=== PATIENT | female | born 1945 | race Caucasian/White ===

== ENCOUNTER 2020-10-09 10:01 | Outpatient (CLI) | payer MEDICARE, OTHER, SELFPAY ==
--- NOTE | 2020-10-09 10:12 | XR_ITS ---
WS: [id number] Exam: XR chest 2V* [id number] Date/Time of Exam: 10/09/2020 10:14 AM Reason For Exam: DM/COPD/SEVERE HTN/WELL ADULT EXAM Comparison 09/30/2015. A new 2 x 3 cm nodular density is seen in the medial aspect of the right lower lobe with possible flu id level. There is also a questionable ill-defined 1 cm nodular density just above the right costophr enic angle that could be a nipple shadow. The lungs are otherwise clear and markedly hyperinflated. N ormal cardiomediastinal structures and regional bony elements. Levoscoliosis of the lower T-spine and upper L-spine. Recommendations: Contrast CT scanning of the chest recommended for further workup. XR/XR chest 2V* [id number] IMPRESSION: 1. A new 2 x 3 cm nodular density with possible fluid level identified in the m edial aspect of the right lower lobe. 2. Questionable 1 cm nodular density seen just above the right costophrenic ang le. This could be a lung nodule or nipple shadow. 3. Marked pulmonary hyperinflation suggesting COPD.
== END 2020-10-09 10:02 | disposition home or self-care (01) ==
PROVIDERS: Visit Provider Family Medicine
DX: E11.9 Type 2 diabetes mellitus without complications (principal); J44.9 Chronic obstructive pulmonary disease, unspecified; I10 Essential (primary) hypertension; Z00.00 Encounter for general adult medical examination without abnormal findings
CPT/HCPCS: 71046

== ENCOUNTER 2020-12-13 09:42 | Outpatient (CLI) | payer MEDICARE, OTHER, SELFPAY ==
--- NOTE | 2020-12-13 | CT_ITS ---
WS: [id number] CT CHEST TECHNIQUE: Contrast enhanced CT of the chest with coronal and sagittal reformatted images. CLINICAL INFORMATION: LUNG NODULE COMPARISON: None. DLP: 533.[address] scans at [facility] use at least one of these dose optimization techniques: automat ed exposure control; mA and/or kV adjustment per patient size (includes targeted exams where dose is matched to clinical indication); or iterative reconstruction. FINDINGS: Moderate to advanced chronic emphysematous changes. No acute pulmonary infiltrates. No focal consolid ation or pleural fluid. Subsegmental atelectasis right lower lobe. A few scattered areas of fibrosis. No mediastinal or hilar lymphadenopathy. Normal caliber thoracic aorta. No axillary lymphadenopathy. Normal thoracic spine. CT/CT chest w con* [id number] IMPRESSION: 1. Moderate to advanced chronic emphysematous changes. No acute pulmonary infi ltrates. 2. Subsegmental atelectasis right lower lobe. A few scattered areas of fibrosi s. 3. No mediastinal or hilar lymphadenopathy. 4. Normal caliber thoracic aorta.
[2020-12-13] MEDS: iodixanol 320 mg/mL 100mL Btl IV (10:16)
== END 2020-12-13 09:43 | disposition home or self-care (01) ==
PROVIDERS: Visit Provider Family Medicine
DX: R91.1 Solitary pulmonary nodule (principal); J44.9 Chronic obstructive pulmonary disease, unspecified; J98.11 Atelectasis
CPT/HCPCS: 71260; Q9967

== ENCOUNTER → 2022-09-22 09:35 | Outpatient (BNVA) | payer MEDICARE, OTHER, SELFPAY | PROVIDERS: PCP Family Medicine; Visit Provider Family Medicine | DX: J44.9 Chronic obstructive pulmonary disease, unspecified (principal); I49.9 Cardiac arrhythmia, unspecified; G47.00 Insomnia, unspecified; I10 Essential (primary) hypertension | CPT/HCPCS: 80053; 80061; 84443; 85025 ==

== ENCOUNTER → 2022-09-23 10:19 | Outpatient (BNVA) | payer MEDICARE, OTHER, SELFPAY | PROVIDERS: PCP Family Medicine; Visit Provider Internal Medicine Cardiovascular Disease | DX: I49.9 Cardiac arrhythmia, unspecified (principal); J44.1 Chronic obstructive pulmonary disease with (acute) exacerbation; I10 Essential (primary) hypertension; J44.9 Chronic obstructive pulmonary disease, unspecified; I49.1 Atrial premature depolarization; I49.3 Ventricular premature depolarization | CPT/HCPCS: 93005; 99203 ==

== ENCOUNTER 2022-11-01 19:21 | Emergency (ER) | payer MEDICARE, OTHER, SELFPAY ==
[2022-11-01 19:25] VITALS: BP 187/112; PULSE 120; RESP 26; TEMP 36.5; O2SAT 76; BMI 16.9
--- NOTE | 2022-11-01 19:57 | XRR_ITS ---
PROCEDURE INFORMATION: Exam: XR Chest Exam date and time: 11/01/2022 8:17 PM Age: 77 years old Clinical indication: Dyspnea TECHNIQUE: Imaging protocol: Radiologic exam of the chest. Views: 2 views. COMPARISON: CT chest w con* [id number] 12/13/2020 10:08 AM FINDINGS: Lungs: Bibasilar atelectasis versus minimal infiltrate. Emphysematous changes. Pleural spaces: Trace bilateral pleural effusions. Heart/Mediastinum: Unremarkable. No cardiomegaly. Bones/joints: Unremarkable. XR/XR chest 2V* [id number] IMPRESSION: 1. Trace bilateral pleural effusions. 2. Bibasilar atelectasis versus minimal infiltrate. 3. Emphysematous changes.
--- NOTE | 2022-11-01 19:57 | ED_ITS ---
HPI - SOB/Dyspnea General: Chief Complaint: Shortness of Breath/Dyspnea Stated Complaint: sob Time Seen by Provider: 11/01/22 19:47 History of Present Illness: HPI Narrative: Patient arrives to the ER with labored breathing, she is tripoding and very short of breath. Patient says she is short of breath all the time. However in the waiting room she was 76% on room air. She was placed on 2 L/min per nasal cannula and jumped up to 96%. Patient has COPD. Patient does not wear oxygen at home. MD elicited complaint: shortness of breath Pertinent past history: COPD Onset (ago): unknown Timing: constant Severity: moderate Exacerbating factors: exertion Relieving factors: oxygen Known history of: COPD Associated symptoms: Reports no associated symptoms; Deny abdominal pain, chest pain, fever(s), nausea, palpitations or vomiting Treatment prior to arrival: none Related Data: Home oxygen amount: none Review of Systems General: Reports: 10 or more systems reviewed and unremarkable except in HPI and below Const: Denies: fever(s) or chills Eyes: Denies: change in vision ENMT: Denies: throat pain or odynophagia Card: Denies: chest pain or palpitations Resp: Reports: dyspnea; Denies: productive cough or non-productive cough GI: Denies: abdominal pain, nausea, vomiting or diarrhea : Denies: flank pain, difficulty voiding or dysuria Musc: Denies: neck pain or back pain [facility] ED PFSH: Medical History COPD (chronic obstructive pulmonary disease) Essential hypertension History of venomous snake bite 2004 Hx of solitary pulmonary nodule Premature atrial contractions PVC (premature ventricular contraction) Surgical History Hx of appendectomy Hx of tubal ligation Social History Smoking and tobacco status: former smoker Quit status (tobacco): has quit using tobacco Year quit tobacco: 2001 Alcohol intake: never Physical Exam Const: COMMON NORMALS: average body habitus, patient oriented x3, no limitations, healthy appearing, alert and well nourished HENMT: COMMON NORMALS: normocephalic, atraumatic, hearing grossly normal bilaterally, external ears normal, Normal external nose present and moist oral m ucous membranes HEAD & SCALP: normocephalic and atraumatic NOSE: Normal external nose present EXTERNAL EAR: Yes external ears normal Eye: COMMON NORMALS: Equal, round and reactive pupils present, EOMs intact bilaterally, conjunctivae normal and no scleral icterus CONJUNCTIVA: Yes conjunctivae normal PUPIL: Yes Equal, round and reactive pupils present Neck/C-Spine: COMMON NORMALS: full ROM, no lymphadenopathy, supple, no meningeal signs, no JVD and Thyroid normal THYROID: Thyroid normal Chest: COMMONS NORMALS: normal inspection of the chest and normal palpation of entire chest wall Resp: COMMON NORMALS: No retractions and No use of accessory muscles AUSCULTATION: diminished lung sounds bilateral and diffuse Cardio: COMMON NORMALS: no JVD, regular rate, regular rhythm, S1 normal heart sound present and S2 normal heart sound present RATE: regular rate RHYTHM: regular rhythm HEART SOUNDS: S1 normal heart sound present and S2 normal heart sound present GI: COMMON NORMALS: Normal to inspection, nondistended, normoactive bowel sounds present, Soft to palpation, non-tender, No hepatosplenomegaly present and no masses PALPATION: Yes Soft to palpation and Yes No hepatosplenomegaly present Neuro: COMMON NORMALS: patient oriented x3 SENSORIUM/ORIENTATION: Yes alert MENINGEAL SIGNS: Yes no meningeal signs Course Vital Signs: Vital signs: Vital Signs Temperature 97.7 F 11/01/22 19:25 Pulse Rate 79 11/01/22 22:07 Respiratory Rate 16 11/01/22 22:07 Blood Pressure 187/112 11/01/22 19:25 Pulse Oximetry 96 11/01/22 22:07 Oxygen Delivery Me thod Nasal Cannula 11/01/22 22:07 MDM - SOB/Dyspnea Medical Decision Making Patient presents to the ER with complaints of shortness of breath and was 76% on room air. Patient was put on 2 L per nasal cannula and O2 saturation increased to 96%. Patient's pulse when she arrived was 120 bpm and I decreased down to 79 bpm. Patient did have a run of a A-fib with RVR she is given 10 mg of Cardizem IV that converted her to her normal sinus rhythm with a pulse in the 80s. X-ray was obtained which showed trace bilateral pleural effusions bibasilar atelectasi s versus minimal infiltrate. Lab work was obtained which showed a normal white count, and metabolic panel that was benign. ABG was obtained on 2 L of oxygen which showed a pH of 7.3 PCO2 of 53.5 and a PO2 of 83.9. Patient has felt good during her stay here in the ER she has been in no acute distress she says she is slowly gotten to this point. Patient has no oxygen at home but we will discharg e her on oxygen at 2 L per nasal cannula, tapering dose of prednisone and azithromycin. Patient will follow-up with her family doctor in the next 1 week. Differential Diagnosis Likely acute exacerbation of chronic obstructive airways disease; Unlikely congestive heart failure or community acquired pneumonia Medical Records I reviewed the patient's medical records. Lab Data I reviewed the patient's lab results. 11/01/22 20:14 11/01/22 20:14 Labs/Radiology: Radiology Impressions Chest X-Ray 11/01/22 19:57 IMPRESSION: 1. Trace bilateral pleural effusions. 2. Bibasilar atelectasis versus minimal infiltrate. 3. Emphysematous changes. Laboratory Results WBC 5.5 10^3/uL (4.0-10.0) 11/01/22 20:14 RBC 3.78 10^6/uL (4.1-5.3) L 11/01/22 20:14 Hgb 12.9 g/dL (11.5-15.3) 11/01/22 20:14 Hct 40.2 % (37.0-47.0) 11/01/22 20:14 MCV 106.3 fl (81-99) H 11/01/22 20:14 MCH 34.1 pg (28.0-34.0) H 11/01/22 20:14 MCHC 32.1 g/dL (30.0-36.0) 11/01/22 20:14 RDW 12.6 % (12.1-15.1) 11/01/22 20:14 Plt Count 169 10^3/cmm (130-400) 11/01/22 20:14 MPV 9.8 fL (7.4-10.4) 11/01/22 20:14 Neut % (Auto) 67.2 % 11/01/22 20:14 Lymph % (Auto) 19.6 % 11/01/22 20:14 [place] % (Auto) 9.7 % 11/01/22 20:14 Eos % (Auto) 2.2 % 11/01/22 20:14 Baso % (Auto) 0.9 % 11/01/22 20:14 Neut # (Auto) 3.68 10^3/uL (1.8-7.7) 11/01/22 20:14 Lymph # (Auto) 1.1 10^3/uL (0.8-4.8) 11/01/22 20:14 [place] # (Auto) 0.5 10^3/uL (0.2-0.9) 11/01/22 20:14 Eos # (Auto) 0.1 10^3/uL (0.0-0.8) 11/01/22 20:14 Baso # (Auto) 0.1 10^3/uL (0.0-0.1) 11/01/22 20:14 Nucleated RBC % (auto) 0 % 11/01/22 20:14 Nucleated RBCs # 0.0 /100WBC 11/01/22 20:14 Specimen Type Arterial 11/01/22 20:20 Sample Site Brachial, left 11/01/22 20:20 ABG pH 7.36 (7.35-7.45) 11/01/22 20:20 ABG pCO2 53.5 mmHg (35-45) H 11/01/22 20:20 ABG pO2 83.9 mmHg (80.0-100.0) 11/01/22 20:20 ABG HCO3 30.2 mmol/L (22-26) H 11/01/22 20:20 ABG Base Excess 3.6 mmol/L (-2.0-2.0) H 11/01/22 20:20 Jhonny Test N/a 11/01/22 20:20 Hematocrit 40.7 % (37-47) 11/01/22 20:20 Hgb O2 Saturation 93.6 % (95-100) L 11/01/22 20:20 Carboxyhemoglobin 2.4 %THgb (0.4-20.1) 11/01/22 20:20 Methemoglobin 0.7 % (0.4-1.5) 11/01/22 20:20 Total Hemoglobin 13.3 g/dL (12-16) 11/01/22 20:20 O2 Delivery Device Nc 11/01/22 20:20 O2 Liters/Min 2.5 % 11/01/22 20:20 FiO2 30.0 % 11/01/22 20:20 Bank Note Designer ID Benji 11/01/22 20:20 Sodium 135 mmol/L (136-145) L 11/01/22 20:14 Potassium 3.5 mmol/L (3.5-5.1) 11/01/22 20:14 Chloride 99 mmol/L (98-107) 11/01/22 20:14 Carbon Dioxide 28 mmol/L (22-29) 11/01/22 20:14 Anion Gap 11.5 (5-19) 11/01/22 20:14 BUN 18 mg/dL (8-23) 11/01/22 20:14 Creatinine 0.5 mg/dL (0.5-0.9) 11/01/22 20:14 GFR Calculation Not Reportable 11/01/22 20:14 Glucose 150 mg/dL (65-115) H 11/01/22 20:14 Calculated Osmolality 285 mOsm/kg (285-295) 11/01/22 20:14 Calcium 8.5 mg/dL (8.5-10.5) 11/01/22 20:14 Magnesium 2.0 mg/dL (1.7-2.3) 11/01/22 20:14 Total Bilirubin 0.8 mg/dL (0.15-1.2) 11/01/22 20:14 AST 18 U/L (0-32) 11/01/22 20:14 ALT 18 U/L (0-33) 11/01/22 20:14 Alkaline Phosphatase 99 U/L (35-105) 11/01/22 20:14 Troponin T Gen 5 ng/L 11 ng/L (0-10) H 11/01/22 20:14 NT-Pro-B Natriuret Pep 2283 pg/mL (0-450) H 11/01/22 20:14 Total Protein 7.0 g/dL (6.6-8.7) 11/01/22 20:14 Albumin 4.6 g/dL (3.5-5.2) 11/01/22 20:14 Globulin 2.4 g/dL (1.3-4.6) 11/01/22 20:14 Nasal Influ A H1 2009 PCR Not detected (NOT DETECT) 11/01/22 20:05 Adenovirus (PCR) Not detected (NOT DETECT) 11/01/22 20:05 C. pneumoniae DNA (PCR) Not detected (NOT DETECT) 11/01/22 20:05 Coronavirus 229E (PCR) Not detected (NOT DETECT) 11/01/22 20:05 Human Metapneumovir PCR Not detected (NOT DETECT) 11/01/22 20:05 Influenza A (H1) PCR Not detected (NOT DETECT) 11/01/22 20:05 Influenza A (H3) PCR Not detected (NOT DETECT) 11/01/22 20:05 Influenza Type A (PCR) Not detected (NOT DETECT) 11/01/22 20:05 Influenza Type B (PCR) Not detected (NOT DETECT) 11/01/22 20:05 M. pneumoniae (PCR) Not detected (NOT DETECT) 11/01/22 20:05 Parainfluenza 1 (PCR) Not detected (NOT DETECT) 11/01/22 20:05 Parainfluenza 2 (PCR) Not detected (NOT DETECT) 11/01/22 20:05 Parainfluenza 3 (PCR) Not detected (NOT DETECT) 11/01/22 20:05 Parainfluenza 4 (PCR) Not detected (NOT DETECT) 11/01/22 20:05 RSV Type A (PCR) Not detected (NOT DETECT) 11/01/22 20:05 RSV Type B (PCR) Not detected (NOT DETECT) 11/01/22 20:05 Entero/Rhino (PCR) Not detected (NOT DETECT) 11/01/22 20:05 SARS-CoV-2 (PCR) Not detected (NOT DETECT) 11/01/22 20:05 Discharge Plan Discharge Patient Disposition: Home Clinical Impression: COPD (chronic obstructive pulmonary disease) Condition: Stable Prescriptions: New prednisone 50 mg tablet 50 mg PO DAILY Qty: 5 0RF azithromycin 250 mg tablet See Rx Instructions .ROUTE .COMPLEX Qty: 6 0RF Rx Instructions: For 250 mg dose pack: take 500 mg today (day 1), then 250 mg for 4 days (days 2-5) No Action albuterol sulfate 90 mcg/actuation HFA aerosol inhaler 2 puff inhalation Q4H PRN (Reason: shortness of breath or wheezing) Qty: 8.5 11RF zolpidem 10 mg tablet 10 mg PO .qhs Qty: 30 5RF Rx Instructions: may use 1/2 to 1 tab per night fluticasone propionate [Flovent HFA] 110 mcg/actuation HFA aerosol inhaler 110 mcg inhalation BID Qty: 12 11RF ipratropium-albuterol 0.5 mg-3 mg(2.5 mg base)/3 mL solution for nebulization 3 ml inhalation QID Qty: 180 11RF Discharge Orders: Discharge ED (Routine); Ordered 11/01/22 Ordered By: Mulugeta Long Other Ambulatory Orders: DME: Oxygen (Order) Location: None Selected Ordered By: Wayne Lewis Referrals: Remi Cano, [Primary Care Provider] - 1 week Patient Instructions: COPD - Emphysema, Hypoxia (ED) Activity Restrictions/Additional Instructions: Please take your medicine as directed. Please wear oxygen at 2 L/min per nasal cannula at all times until seen by primary care. Coding Level of Care Code ED Laboratory Assistant for Gayla Guzman
--- NOTE | 2022-11-01 19:58 | ECG_ITS ---
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 Measurements Intervals [place] Rate: 109 P: 0 VA: 0 QRS: 75 QRSD: 82 T: 60 QT: 321 QTc: 434 Interpretive Statements ATRIAL FIBRILLATION WITH RAPID VENTRICULAR RESPONSE MODERATE ST DEPRESSION [0.05+ mV ST DEPRESSION] No previous ECG available for comparison Electronically Signed On 11-01-2022 21:26:22 CDT by Elmer Verma M.D. [email or web address] health river oaksLIBCASTmercy health defiance hospitalMade2Manage [email or web address]/store/[id number]
[2022-11-01 20:21] LABS: Basophils # 0.1 10^3/uL (0.0-0.1); Basophils % 0.9 %; Eosinophils # 0.1 10^3/uL (0.0-0.8); Eosinophils % 2.2 %; Hematocrit 40.2 % (37.0-47.0); Hemoglobin 12.9 g/dL (11.5-15.3); Lymphocytes # 1.1 10^3/uL (0.8-4.8); Lymphocytes % 19.6 %; Mean Corpuscular HGB Conc 32.1 g/dL (30.0-36.0); Mean Corpuscular Hemoglobin 34.1 pg (28.0-34.0); Mean Corpuscular Volume 106.3 fl (81-99); Mean Platelet Volume 9.8 fL (7.4-10.4); Monocytes # 0.5 10^3/uL (0.2-0.9); Monocytes % 9.7 %; Neutrophils # 3.68 10^3/uL (1.8-7.7); Neutrophils % 67.2 %; Nucleated Red Blood Cells % 0 %; Platelet Count 169 10^3/cmm (130-400); Red Blood Count 3.78 10^6/uL (4.1-5.3); Red Cell Distribution Width 12.6 % (12.1-15.1); White Blood Count 5.5 10^3/uL (4.0-10.0)
[2022-11-01 20:31] LABS: ABG PCO2 53.5 mmHg (35-45); ABG PH Result 7.36 (7.35-7.45); Arterial Blood Gas Hematocrit 40.7 % (37-47); Base Excess ABG 3.6 mmol/L (-2.0-2.0); Blood Gas LPM 2.5 %; Blood Gas Sample Site Brachial, left; Blood Gas Sample Type Arterial; Carboxyhemoglobin 2.4 %THgb (0.4-20.1); HCO3 ABG 30.2 mmol/L (22-26); HGB O2 Sat 93.6 % (95-100); Methemoglobin 0.7 % (0.4-1.5); Oxygen Device NC; PO2 ABG 83.9 mmHg (80.0-100.0); Total Hemoglobin 13.3 g/dL (12-16)
[2022-11-01 20:52] LABS: Alanine Aminotransferase 18 U/L (0-33); Albumin Level 4.6 g/dL (3.5-5.2); Alkaline Phosphatase 99 U/L (35-105); Anion Gap 11.5 (5-19); Aspartate Amino Transferase 18 U/L (0-32); Blood Urea Nitrogen 18 mg/dL (8-23); Calcium 8.5 mg/dL (8.5-10.5); Carbon Dioxide 28 mmol/L (22-29); Chloride 99 mmol/L (98-107); Globulin 2.4 g/dL (1.3-4.6); Glucose 150 mg/dL (65-115); NT Pro B Type Natriuretic Pept 2283 pg/mL (0-450); Osmolality Calculated 285 mOsm/kg (285-295); Potassium 3.5 mmol/L (3.5-5.1); Sodium 135 mmol/L (136-145); Total Bilirubin 0.8 mg/dL (0.15-1.2)
[2022-11-01] MEDS: dilTIAZem 5 mg/mL SDV 5 mL 10 MG IVP (21:07)
[2022-11-01 21:51] LABS: Troponin T (5th) Once 11 ng/L (0-10)
[2022-11-01 22:00] VITALS: PULSE 79
[2022-11-01 22:07] VITALS: PULSE 79; RESP 16; O2SAT 96
[2022-11-01 22:21] LABS: Adenovirus Not Detected (NOT DETECT); Chlamydia Pneumoniae Not Detected (NOT DETECT); Coronavirus 229E,HKU1,NL63,OC4 Not Detected (NOT DETECT); Human Metapneumovirus Not Detected (NOT DETECT); Human Rhinovirus/Enterovirus Not Detected (NOT DETECT); Influenza A Not Detected (NOT DETECT); Influenza A H1 Not Detected (NOT DETECT); Influenza A H1-2009 Not Detected (NOT DETECT); Influenza A H3 Not Detected (NOT DETECT); Influenza B Not Detected (NOT DETECT); Mycoplasma Pneumoniae Not Detected (NOT DETECT); Parainfluenza Virus Type 1 Not Detected (NOT DETECT); Parainfluenza Virus Type 2 Not Detected (NOT DETECT); Parainfluenza Virus Type 3 Not Detected (NOT DETECT); Parainfluenza Virus Type 4 Not Detected (NOT DETECT); Respiratory Syncytial Virus A Not Detected (NOT DETECT); Respiratory Syncytial Virus B Not Detected (NOT DETECT); SARS-COV-2 Not Detected (NOT DETECT)
[2022-11-01 23:13] VITALS: PULSE 81; RESP 16; O2SAT 97
[2022-11-01 23:22] VITALS: O2SAT 84; O2SAT 85
== END 2022-11-01 23:40 | disposition home or self-care (01) ==
PROVIDERS: Emergency Provider Emergency Medicine; PCP Family Medicine
DX: J44.9 Chronic obstructive pulmonary disease, unspecified (principal); Z87.891 Personal history of nicotine dependence
CPT/HCPCS: 36600; 71046; 80053; 82805; 83735; 83880; 84484; 85025; 87486; 87581; 87633; 93005; 96374; 99285; J3490

== ENCOUNTER 2022-11-20 09:38 | Outpatient (CLI) | payer MEDICARE, OTHER, SELFPAY ==
--- NOTE | 2022-11-20 09:47 | CT_ITS ---
WS: [id number] CT scan of the chest with IV contrast, additional two-dimensional coronal and sagittal reconstruction was performed. 11/20/2022 Clinical Data: I48.0 - Paroxysmal atrial fibrillation Comparison: CT chest, 12/13/2020 DLP: 168.[address] scans at [facility] use at least one of these dose optimization techniques: automated e xposure control; mA and/or kV adjustment per patient size (includes targeted exams where dose is matc hed to clinical indication); or iterative reconstruction. Findings: No nodules, masses or effusions are seen. The lungs show atelectatic changes throughout. There is hyp erinflation. The heart size is normal with no pericardial effusion. The pulmonary arterial system and thoracic aorta demonstrate no abnormalities or dilatations. No pulmonary emboli are seen. There is n o axillary or significant mediastinal adenopathy. The upper abdomen shows no abnormalities. CT/CT chest w con* [id number] Impression: 1. Hyperinflation and chronic atelectatic changes. 2. Negative for acute cardiopulmonary disease.
[2022-11-20] MEDS: iohexol 350 mg/mL 500 mL Btl (per mL) IV (09:55)
== END 2022-11-20 09:39 | disposition home or self-care (01) ==
LOC: RAD 09:41
PROVIDERS: PCP Family Medicine; Visit Provider Family Medicine
DX: I48.0 Paroxysmal atrial fibrillation (principal); J44.1 Chronic obstructive pulmonary disease with (acute) exacerbation
CPT/HCPCS: 71260; Q9967

== ENCOUNTER 2022-11-27 12:14 | Outpatient (CLI) | payer MEDICARE, OTHER, SELFPAY ==
--- NOTE | 2022-11-27 12:45 | USCV_ITS ---
Arlette Umaña Age: 77 Gender: F : 1945 Exam Date: 11/27/2022 12:42 Ordering Phys: Remi aCno DO Technologist: LETICIA [place] [facility] [place]ication: PAROZYAMAL A FIB BP: / HR: 113 Rhythm: Sinus Technical Quality: Adequate MEASUREMENTS (Male / Female) Normal Values 2D ECHO LV Diastolic Diameter PLAX 3.3 cm 4.2 - 5.9 / 3.9 - 5.3 cm LV Systolic Diameter PLAX 2.1 cm LV Chamber Size 2.8 cm IVS Diastolic Thickness 0.6 cm 0.6 - 1.0 / 0.6 - 0.9 cm IVS Systolic Thickness 1.1 cm LVPW Diastolic Thickness 0.9 cm 0.6 - 1.0 / 0.6 - 0.9 cm LVPW Systolic Thickness 1.3 cm RV Chamber Size 2.8 cm LVOT Diameter 2.0 cm LV Ejection Fraction 2D Teich 67.2 % LV Ejection Fraction MOD 2C 51.5 % LV Ejection Fraction 2C AL 53.3 % LA Diameter 3.0 cm LA Width 1.8 cm LA Height 3.0 cm RA Width 2.7 cm RA Height 3.3 cm Aorta at Sinotubular Diameter 2.5 cm IVC Diameter 1.0 cm M-MODE Aortic Annulus Diameter 2.4 cm LA Ao Ratio MM 1.4 MV E Point Septal Separation 0.4 cm DOPPLER AV Peak Velocity 81.0 cm/s LVOT Peak Velocity 97.0 cm/s AV Area Cont Eq vti 3.5 cm squared AV Area Cont Eq pk 3.7 cm squared MV Area PHT 4.0 cm squared Mitral E to A Ratio 5.8 MV E' Velocity 73.8 cm/s Mitral E to MV E' Ratio 6.4 Mitral E to LV E' Lateral Ratio 6.9 Mitral E to LV E' Septal Ratio 6.0 TR Peak Velocity 159.1 cm/s TR Peak Gradient 10.1 mmHg TR Mean Velocity 112.4 cm/s TR Mean Gradient 6.3 mmHg TR Velocity Time Integral 40.4 cm TV Peak E Velocity 61.0 cm/s Right Atrial Pressure 5.0 mmHg Pulmonary Artery Systolic Pressu 15.1 mmHg RV Acceleration Time 0.1 s RV Ejection Time 0.3 s RV AcT/ET 0.3 FINDINGS Left Ventricle Technically difficult study since the patient was not able to lay down and also was found to be tachycardic, during the study. Possibly normal LV size with borderline low ejection fraction of 50%..mild left ventricular hypertrophy. Grade I/IV diastolic dysfunction (abnormal relaxation filling pattern), normal to mildly elevated filling pressures. Right Ventricle Appears to be of normal size with a slightly diminished ejection fraction. Right Atrium The right atrium is normal in size. Left Atrium The left atrium is normal in size. Mitral Valve Mild mitral valve regurgitation. Aortic Valve No gross abnormalities noted Tricuspid Valve Trace tricuspid valve regurgitation. Pulmonic Valve Trace pulmonary valve regurgitation. Pericardium Normal pericardium without effusion. Aorta Normal ascending aorta dimension. IVC Normal inferior vena cava. CONCLUSIONS Technically difficult study since the patient was not able to lay down and also was found to be tachycardic, during the study. Possibly normal LV size with borderline low ejection fraction of 50%..mild left ventricular hypertrophy. Grade I/IV diastolic dysfunction (abnormal relaxation filling pattern), normal to mildly elevated filling pressures. Mild mitral valve regurgitation. Trace tricuspid valve regurgitation. The right ventricle appears to be of normal size with slightly diminished ejection fraction. There is no pericardial effusion. No similar previous studies are available for comparison Dr Liss Guardado MD [facility] (Electronically Signed) Final Date: 04 Dec 2022 07:14 S
== END 2022-11-27 12:15 | disposition home or self-care (01) ==
LOC: RAD 12:20
PROVIDERS: PCP Family Medicine; Visit Provider Family Medicine
DX: I48.0 Paroxysmal atrial fibrillation (principal); J44.9 Chronic obstructive pulmonary disease, unspecified; I34.0 Nonrheumatic mitral (valve) insufficiency
CPT/HCPCS: 93306

== ENCOUNTER → 2023-03-25 09:37 | Outpatient (BNVA) | payer MEDICARE, OTHER, SELFPAY | PROVIDERS: PCP Family Medicine; Visit Provider Internal Medicine Pulmonary Disease | DX: J43.9 Emphysema, unspecified (principal); J96.11 Chronic respiratory failure with hypoxia; J96.12 Chronic respiratory failure with hypercapnia; Z87.891 Personal history of nicotine dependence; G47.00 Insomnia, unspecified | CPT/HCPCS: 99204 ==

== ENCOUNTER → 2023-05-06 15:04 | Outpatient (BNVA) | payer MEDICARE, OTHER, SELFPAY | PROVIDERS: PCP Family Medicine; Visit Provider Family Medicine | DX: G47.00 Insomnia, unspecified (principal); I49.9 Cardiac arrhythmia, unspecified; J96.11 Chronic respiratory failure with hypoxia; J96.12 Chronic respiratory failure with hypercapnia; R14.0 Abdominal distension (gaseous) | CPT/HCPCS: 80053; 85025; 86677 ==

== ENCOUNTER 2023-07-23 09:17 | Emergency (ER) | payer MEDICARE, OTHER, SELFPAY ==
[2023-07-23] VITALS (7 sets, daily range): BP systolic 134–154; BP diastolic 63–90; PULSE 88–119; RESP 14–26; TEMP 36.9; O2SAT 79–98
--- NOTE | 2023-07-23 09:42 | ECG_ITS ---
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 Measurements Intervals [place] Rate: 114 P: 0 AK: 0 QRS: 80 QRSD: 78 T: 78 QT: 336 QTc: 464 Interpretive Statements Multifocal atrial tachycardia MODERATE ST DEPRESSION [0.05+ mV ST DEPRESSION] Compared to ECG 11/01/2022 20:34:39 No significant changes Electronically Signed On 07-23-2023 16:47:24 BUILDINGS AND GROUNDS SUPERINTENDENT by Liss Guardado M.D. [email or web address] regional health centerPetflowfulton county health center.SeeClickFix/store/[id number] f
--- NOTE | 2023-07-23 10:19 | PC.PHAR ---
pt states she takes care of her own medications-pt states she takes xanax 0.25mg hs rx filled 06/04/23 30d/s 0.25mg tid prn-pt states she no longer takes eliquis 5mg bid ext shows last filled 11/05/22 30d/s pt states not taken in months-pt also states she is no longer taking metoprolol tartrate 25mg bid ext shows last filled 11/05/22 30d/s pt states not taken in months-pt states she uses her ipratropium-albuterol bid rx filled 06/04/23 12d/s 3ml qid-notes are made in the pharmacy comments
--- NOTE | 2023-07-23 10:32 | ED_ITS ---
HPI - SOB/Dyspnea 2 General: Chief Complaint: Shortness of Breath/Dyspnea Stated Complaint: sob Time Seen by Provider: 07/23/23 09:24 Source: patient Mode of arrival: ambulatory History of Present Illness: HPI Narrative: 78-year-old female presents to the emerg ency room with complaints of cough and weakness. Patient has a history of COPD has oxygen at home usually uses 2 L she uses albuterol and fluticasone inhaler on a regular basis. She denies any productive cough no fever sweats or chills. No chest pain no vomiting or diarrhea MD elicited complaint: shortness of breath and cough Pertinent past history: COPD Onset (ago): day(s) Exacerbating factors: exertion and coughing Relieving factors: rest and bronchodilators Known history of: COPD Associated symptoms: Deny abdominal pain, chest pain or fever(s) Treatment prior to arrival: oxygen and bronchodilator Related Data: Home oxygen amount: 2 liters Review of Systems 2 Const: Denies: fever(s) or chills Card: Denies: chest pain Resp: Denies: dyspnea GI: Denies: abdominal pain : Denies: dysuria, urinary frequency or urinary urgency Musc: Denies: neck pain or back pain Skin/Breast: Denies: rash PFSH ED 2 PFSH: Medical History PVC (premature ventricular contraction) Premature atrial contractions History of venomous snake bite 2004 Essential hypertension Hx of solitary pulmonary nodule COPD (chronic obstructive pulmonary disease) Surgical History Hx of appendectomy Hx of tubal ligation Social History Smoking and tobacco/nicotine status: former use of tobacco/nicotine Quit status (tobacco/nicotine): has quit using Year quit tobacco: 2001 Alcohol intake: never Substance/Drug Use: never Physical Exam 2 Const: GENERAL APPEARANCE: cooperative and comfortable O RIENTATION/CONSCIOUSNESS: Yes awake, Yes oriented to person, Yes oriented to place and Yes oriented to time HENMT: COMMON NORMALS: normocephalic, atraumatic and hearing grossly normal bilaterally HEAD & SCALP: normocephalic and atraumatic Resp: COMMON NORMALS: normal respiratory effort, No retractions and No use of accessory muscles AUSCULTATION: wheezes Cardio: COMMON NORMALS: regular rate, regular rhythm and No murmurs present (Cardio) RATE: regular rate RHYTHM: regular rhythm GI: COMMON NORMALS: Soft to palpation and No hepatosplenomegaly present A USCULTATION: Yes normoactive bowel sounds PALPATION: Yes Soft to palpation, No Tenderness to palpation present (GI), No Guarding due to palpation present (GI) and Yes No hepatosplenomegaly present Extremity: COMMON NORMALS: normal to inspection, capillary refill normal, no clubbing, cyanosis or edema, no calf tenderness and no pedal edema Neuro: SENSORIUM/ORIENTATION: Yes oriented to person, Yes oriented to place and Yes oriented to time Skin: COMMON NORMALS: no rashes or lesions noted GENERAL SKIN EXAM: no rashes or lesions noted Course 2 Vital Signs: Vital signs: Vital Signs Temperature 98.4 F 07/23/23 09:24 Pulse Rate 98 07/23/23 13:41 Respiratory Rate 19 H 07/23/23 13:02 Blood Pressure 154/78 07/23/23 13:41 Pulse Oximetry 94 07/23/23 13:41 Oxygen Delivery Me thod Room Air 07/23/23 13:02 Oxygen Flow Rate 2 07/23/23 12:02 MDM - SOB/Dyspnea Medical Decision Making Labs and imaging reviewed PCR positive for COVID. Discharge patient home can continue to use oxygen at 2 2 L/min. Discharge home on dexamethasone 7 mg daily. Patient is a symptoms for more than 5 days and is outside the window for treatment with Paxlovid Medical Records I reviewed the patient's medical records. Lab Data I reviewed the patient's lab results. 07/23/23 09:42 07/23/23 09:42 Labs/Radiology: Radiology Impressions Chest X-Ray 07/23/23 10:45 IMPRESSION: Trace right pleural effusion. Laboratory Results WBC 3.69 10^3/uL (3.29-11.43) 07/23/23 09:42 RBC 3.15 10^6/uL (3.85-5.65) L 07/23/23 09:42 Hgb 11.20 g/dL (11.27-16.99) L 07/23/23 09:42 Hct 33.1 % (36-47) L 07/23/23 09:42 MCV 105.1 fl (85-98) H 07/23/23 09:42 MCH 35.6 pg (27-33) H 07/23/23 09:42 MCHC 33.8 g/dL (30-55) 07/23/23 09:42 RDW 11.5 % (12.1-15.1) L 07/23/23 09:42 Plt Count 68 10^3/cmm (157-399) L 07/23/23 09:42 MPV 10.4 fL (7.4-10.4) 07/23/23 09:42 Neut % (Auto) 76.7 % 07/23/23 09:42 Lymph % (Auto) 14.6 % 07/23/23 09:42 Villalba % (Auto) 7.6 % 07/23/23 09:42 Eos % (Auto) 0.3 % 07/23/23 09:42 Baso % (Auto) 0.3 % 07/23/23 09:42 Neut # (Auto) 2.83 10^3/uL (1.8-7.7) 07/23/23 09:42 Lymph # (Auto) 0.5 10^3/uL (0.8-4.8) L 07/23/23 09:42 Villalba # (Auto) 0.3 10^3/uL (0.2-0.9) 07/23/23 09:42 Eos # (Auto) 0.0 10^3/uL (0.0-0.8) 07/23/23 09:42 Baso # (Auto) 0.0 10^3/uL (0.0-0.1) 07/23/23 09:42 Nucleated RBC % (auto) 0 % 07/23/23 09:42 Nucleated RBCs # 0.0 /100WBC 07/23/23 09:42 Sodium 138 mmol/L (136-145) 07/23/23 09:42 Potassium 3.5 mmol/L (3.5-5.1) 07/23/23 09:42 Chloride 99 mmol/L (98-107) 07/23/23 09:42 Carbon Dioxide 28 mmol/L (22-29) 07/23/23 09:42 Anion Gap 14.5 (5-19) 07/23/23 09:42 BUN 11 mg/dL (8-23) 07/23/23 09:42 Creatinine 0.6 mg/dL (0.5-0.9) 07/23/23 09:42 GFR Calculation Not Reportable 07/23/23 09:42 Glucose 103 mg/dL (65-115) 07/23/23 09:42 Calculated Osmolality 286 mOsm/kg (285-295) 07/23/23 09:42 Calcium 8.6 mg/dL (8.5-10.5) 07/23/23 09:42 Magnesium 1.8 mg/dL (1.7-2.3) 07/23/23 09:42 Total Bilirubin 0.9 mg/dL (0.15-1.2) 07/23/23 09:42 AST 24 U/L (0-32) 07/23/23 09:42 ALT 16 U/L (0-33) 07/23/23 09:42 Alkaline Phosphatase 87 U/L (35-105) 07/23/23 09:42 Troponin T Baseline 13 ng/L (0-10) H 07/23/23 09:42 Troponin T 120 Minute 13.14 ng/L (0-10) H 07/23/23 12:04 Delta Troponin T 0.14 ABS# (0-10) 07/23/23 12:04 Total Protein 6.6 g/dL (6.6-8.7) 07/23/23 09:42 Albumin 4.0 g/dL (3.5-5.2) 07/23/23 09:42 Globulin 2.6 g/dL (1.3-4.6) 07/23/23 09:42 Lipase 30 U/L (13-60) 07/23/23 09:42 Coronavirus 229E (PCR) Not detected (NOT DETECT) 07/23/23 10:45 Influenza Type A Ag negative (Negative) 07/23/23 10:45 Influenza Type B Ag negative (Negative) 07/23/23 10:45 SARS-CoV-2 (PCR) Detected (NOT DETECT) A 07/23/23 10:45 All radiology interpretation(s) finalized by discharge Discharge Plan Discharge Patient Disposition: Home Clinical Impression: COVID-19 COPD (chronic obstructive pulmonary disease) Qualifiers: COPD type: COPD with acute exacerbation Qualified Code(s): J44.1 - Chronic obstructive pulmonary disease with (acute) exacerbation Condition: Stable Prescriptions: New ipratropium-albuterol 0.5 mg-3 mg(2.5 mg base)/3 mL solution for nebulization 3 ml inhalation Q4H PRN (Reason: shortness of breath or wheezing) Qty: 90 0RF albuterol sulfate 90 mcg/actuation HFA aerosol inhaler 2 inh INHALATION Q4H PRN (Reason: shortness of breath or wheezing) Qty: 18 0RF dexamethasone 6 mg tablet 6 mg PO DAILY Qty: 7 0RF No Action albuterol sulfate 90 mcg/actuation HFA aerosol inhaler 2 - 6 puff inhalation Q4H PRN (Reason: shortness of breath or wheezing) Qty: 8.5 11RF Anoro Ellipta 62.5-25 mcg/actuation blister with device 1 inh inhalation DAILY Qty: 60 6RF fluticasone propionate [Flovent HFA] 220 mcg/actuation HFA aerosol inhaler 1 puff inhalation BID Qty: 12 1RF ipratropium-albuterol 0.5 mg-3 mg(2.5 mg base)/3 mL solution for nebulization 3 ml inhalation BID alprazolam 0.25 mg tablet 0.25 mg PO BEDTIME ibuprofen 200 mg Tablet 200 mg PO BID Discharge Orders: Discharge ED (Routine); Ordered 07/23/23 Ordered By: Asher Julian Referrals: Remi Cano DO [Primary Care Provider] - Discharge Diet: As Directed Discharge Activity: Increase activity as tolerated Patient Instructions: COVID-19 (Coronavirus Disease 2019) (ED), Opioid Safety, Pain Management Activity Restrictions/Additional Instructions: Thank you for choosing [facility] for your healthcare needs today. Please realize this is an emergency room and that we are providing you with a medical screening exam and this may not be complete and all inclusive of all the testing and or work up that you may need to determine your ailment or severity of your illness. It is very important that you follow up as instructed or that you return to the Emergency Department should you have concerns or if your condition changes or worsens in any way. You are seen today for difficulty with breathing. Recommend use albuterol ipratropium bromide nebulizers as needed start oral steroid taper. If symptoms worsen return to the emergency room. You are outside of the window for effective treatment with antivirals for COVID at this time. Coding Level of Care Code ED Vehicle Care Specialist for Gayla Guzman
[2023-07-23] MEDS: ondansetron 2 mg/ML SDV 2 mL 4 MG IVP (10:39)
[2023-07-23] MEDS: sodium chloride 0.9% 1,000 ML 999 ML IV (10:39)
[2023-07-23 10:44] LABS: Basophils % 0.3 %; Eosinophils % 0.3 %; Hematocrit 33.1 % (36-47); Lymphocytes # 0.5 10^3/uL (0.8-4.8); Lymphocytes % 14.6 %; Mean Corpuscular HGB Conc 33.8 g/dL (30-55); Mean Corpuscular Hemoglobin 35.6 pg (27-33); Mean Corpuscular Volume 105.1 fl (85-98); Mean Platelet Volume 10.4 fL (7.4-10.4); Monocytes # 0.3 10^3/uL (0.2-0.9); Monocytes % 7.6 %; Neutrophils # 2.83 10^3/uL (1.8-7.7); Neutrophils % 76.7 %; Nucleated Red Blood Cells % 0 %; Platelet Count 68 10^3/cmm (157-399); Red Blood Count 3.15 10^6/uL (3.85-5.65); Red Cell Distribution Width 11.5 % (12.1-15.1); White Blood Count 3.69 10^3/uL (3.29-11.43)
--- NOTE | 2023-07-23 10:45 | XRR_ITS ---
PROCEDURE INFORMATION: Exam: XR Chest Exam date and time: 07/23/2023 10:55 AM Age: 77 years old Clinical indication: Cough and dyspnea; Additional info: Dyspnea/cough TECHNIQUE: Imaging protocol: Radiologic exam of the chest. Views: 1 view. COMPARISON: CT chest w con* [id number] 11/20/2022 9:58 AM FINDINGS: Lungs: Linear atelectasis in the right mid lung, similar to prior. Interstitial thickening in the left upper lobe. Emphysema. Pleural spaces: Trace right pleural effusion. Heart/Mediastinum: No cardiomegaly. Bones/joints: Unremarkable. XR/XR chest 1V portable [id number] IMPRESSION: Trace right pleural effusion.
[2023-07-23 10:54] LABS: Alanine Aminotransferase 16 U/L (0-33); Alkaline Phosphatase 87 U/L (35-105); Anion Gap 14.5 (5-19); Aspartate Amino Transferase 24 U/L (0-32); Blood Urea Nitrogen 11 mg/dL (8-23); Calcium 8.6 mg/dL (8.5-10.5); Carbon Dioxide 28 mmol/L (22-29); Chloride 99 mmol/L (98-107); Globulin 2.6 g/dL (1.3-4.6); Glucose 103 mg/dL (65-115); Lipase 30 U/L (13-60); Magnesium 1.8 mg/dL (1.7-2.3); Osmolality Calculated 286 mOsm/kg (285-295); Potassium 3.5 mmol/L (3.5-5.1); Sodium 138 mmol/L (136-145); Total Bilirubin 0.9 mg/dL (0.15-1.2); Total Protein 6.6 g/dL (6.6-8.7)
[2023-07-23 11:25] LABS: Influenza A by IFA negative (Negative); Influenza B by IFA negative (Negative)
--- NOTE | 2023-07-23 11:58 | ECG_ITS ---
[facility] Test Date: 2023-07-23 Pat Name: Arlette Umaña Department: Room: Gender: Female Visitor Services Associate: : [id number] Requested By: Asher Acharya Order Number: [id number] Tracie MD: Liss Guardado M.D. Measurements Intervals Graff Rate: 106 P: 0 WY: 0 QRS: 77 QRSD: 77 T: 75 QT: 352 QTc: 469 Interpretive Statements Multifocal atrial tachycardia WITH ABERRANT CONDUCTION OR VENTRICULAR PREMATURE COMPLEXES MODERATE ST DEPRESSION [0.05+ mV ST DEPRESSION] Compared to ECG 11/01/2022 20:34:39 Ventricular premature complex(es) now present Aberrant conduction of supraventricular beat(s) now present ST (T wave) deviation still present Electronically Signed On 07-23-2023 16:42:01 SURFACE TO [employer] OFFICER by Liss Guardado M.D. [id number]
[2023-07-23 12:32] LABS: Troponin(5th) Baseline 13 ng/L (0-10)
[2023-07-23 12:46] LABS: Troponin 5 2HR 13.14 ng/L (0-10); Troponin 5 2HR Delta 0.14 ABS# (0-10)
[2023-07-23 12:50] LABS: Adenovirus Not Detected (NOT DETECT); Chlamydia Pneumoniae Not Detected (NOT DETECT); Coronavirus 229E,HKU1,NL63,OC4 Not Detected (NOT DETECT); Human Metapneumovirus Not Detected (NOT DETECT); Human Rhinovirus/Enterovirus Not Detected (NOT DETECT); Influenza A Not Detected (NOT DETECT); Influenza A H1 Not Detected (NOT DETECT); Influenza A H1-2009 Not Detected (NOT DETECT); Influenza A H3 Not Detected (NOT DETECT); Influenza B Not Detected (NOT DETECT); Mycoplasma Pneumoniae Not Detected (NOT DETECT); Parainfluenza Virus Type 1 Not Detected (NOT DETECT); Parainfluenza Virus Type 2 Not Detected (NOT DETECT); Parainfluenza Virus Type 3 Not Detected (NOT DETECT); Parainfluenza Virus Type 4 Not Detected (NOT DETECT); Respiratory Syncytial Virus A Not Detected (NOT DETECT); Respiratory Syncytial Virus B Not Detected (NOT DETECT)
[2023-07-23 12:54] LABS: SARS-COV-2 Detected (NOT DETECT)
== END 2023-07-23 13:42 | disposition home or self-care (01) ==
PROVIDERS: Emergency Provider Family Medicine; PCP Family Medicine
DX: U07.1 COVID-19 (principal); J44.1 Chronic obstructive pulmonary disease with (acute) exacerbation; I10 Essential (primary) hypertension; Z87.891 Personal history of nicotine dependence
CPT/HCPCS: 36415; 71045; 80053; 83690; 83735; 84484; 85025; 87635; 87804; 93005; 96361; 96374; 99285; J2405; J7030

== ENCOUNTER → 2023-08-24 12:07 | Outpatient (BNVA) | payer MEDICARE, OTHER, SELFPAY | PROVIDERS: PCP Family Medicine; Visit Provider Clinical Nurse Specialist Adult Health | DX: I48.0 Paroxysmal atrial fibrillation (principal); J96.11 Chronic respiratory failure with hypoxia; J96.12 Chronic respiratory failure with hypercapnia; I49.1 Atrial premature depolarization; I49.9 Cardiac arrhythmia, unspecified; I49.3 Ventricular premature depolarization | CPT/HCPCS: 85025 ==

== ENCOUNTER → 2024-05-23 13:04 | Outpatient (BNVA) | payer MEDICARE, OTHER, SELFPAY | PROVIDERS: PCP Family Medicine; Visit Provider Family Medicine | DX: E55.9 Vitamin D deficiency, unspecified (principal); J96.11 Chronic respiratory failure with hypoxia; J96.12 Chronic respiratory failure with hypercapnia; G47.00 Insomnia, unspecified; F41.9 Anxiety disorder, unspecified; E03.9 Hypothyroidism, unspecified; J44.1 Chronic obstructive pulmonary disease with (acute) exacerbation | CPT/HCPCS: 80053; 82607; 82652; 84443; 85025 ==